=== PATIENT | male | born 1970 | race Asian ===

== ENCOUNTER 2024-07-16 12:43 | Emergency (ER) | payer SELFPAY ==
[~2024-07-16] VITALS: Ht 165.1 cm; Wt 68.0 kg
[2024-07-16 12:50] VITALS: TEMP 98.6
[2024-07-16 13:32] LABS: BASOPHILS % (AUTO) 0.1 % (0.0-2.0); EOSINOPHILS % (AUTO) 0.8 % (1.0-6.0); HEMOGLOBIN 14.7 g/dL (13.5-17.5); LYMPHOCYTES # (AUTO) 1.7 K/uL (1.0-4.8); LYMPHOCYTES % (AUTO) 18.4 % (22.0-44.0); MEAN CORPUSCULAR HEMOGLOBIN 28.2 pg (26.0-34.0); MEAN CORPUSCULAR HGB CONC 32.7 G/dL (31.0-37.0); MEAN CORPUSCULAR VOLUME 86 fL (80-100); MONOCYTES # (AUTO) 0.4 K/uL (0.1-1.0); NEUTROPHILS # (AUTO) 7.2 K/uL (1.8-7.7); NEUTROPHILS % (AUTO) 76.7 % (40.0-70.0); PLATELET COUNT (AUTO) 288 K/uL (150-450); RED BLOOD CELL COUNT(AUTO) 5.21 MIL/uL (4.50-5.90); RED CELL DISTRIBUTION WIDTH 12.9 % (11.5-14.5); WHITE BLOOD COUNT (AUTO) 9.3 K/uL (4.5-11.0)
[2024-07-16 13:38] LABS: ANION GAP 9 mmol/L (8-16); CALCIUM, TOTAL 9.8 mg/dL (8.8-10.5); CARBON DIOXIDE 28 mmol/L (22-29); CHLORIDE 100 mmol/L (98-107); CREATININE 0.87 mg/dL (0.60-1.30); GLOMERULAR FILTR. RATE CALC > 60 mL/min (>60); GLUCOSE,RANDOM 176 mg/dL (70-110); SODIUM SERUM 137 mmol/L (136-145); UREA NITROGEN, BLOOD 10 mg/dL (7-18)
[2024-07-16 13:45] LABS: ALBUMIN 4.2 g/dL (3.4-5.0); BILIRUBIN,DIRECT 0.1 mg/dL (0.00-0.20); BILIRUBIN,TOTAL 0.4 mg/dL (0.1-1.0); TOTAL PROTEIN, SERUM 8.2 g/dL (6.4-8.2)
[2024-07-16 13:50] LABS: CREATINE KINASE, TOTAL ONLY 204 U/L (39-308); TROPONIN I-HIGH SENSITIVITY 30 ng/L (<76)
[2024-07-16 13:52] LABS: B-TYPE NATRIURETIC PEPTIDE 37 pg/mL (0-100)
[2024-07-16] MEDS ORDERED: FAMO20 PO (13:58)
[2024-07-16] MEDS: FAMOTIDINE 20 MG TABLET PO ONE (15:02)
[2024-07-16] MEDS: MAG HYDROX/ALUMINUM HYD/SIMETH 30 ML SUSPENSION UDCUP PO ONE (15:02)
[2024-07-16 15:10] VITALS: BP 158/92; PULSE 75; RESP 18; O2SAT 97
== END 2024-07-16 15:29 | disposition home or self-care (01) ==
LOC: EMS 12:45
DX: K21.9 Gastro-esophageal reflux disease without esophagitis (principal)
CPT/HCPCS: 71045; 80048; 80076; 82550; 83880; 84484; 85025; 93005; 99285; 36415-L1; 36415-TC